=== PATIENT | male | born 1990 | race Caucasian/White ===

== ENCOUNTER 2017-08-11 20:12 | Emergency (ER) | payer BC, OTHER ==
[2017-08-11] MEDS ORDERED: predniSONE 20 MG Tab PO ONE (21:20)
[2017-08-11] MEDS ORDERED: Orphenadrine 100 MG Tab.ER PO STA (21:20)
--- NOTE | 2017-08-11 21:27 | EDM.PDOC ---
ED HPI GENERAL MEDICAL PROBLEM - General Chief Complaint: Back Pain or Injury Stated Complaint: BACK PAIN Time Seen by Provider: 08/11/17 20:50 Source of Information: Reports: Patient, RN Notes Reviewed History Limitations: Reports: No Limitations - History of Present Illness INITIAL COMMENTS - FREE TEXT/NARRATIVE: The patient states that he bent over to pepper picker his keys around 08:00 this morning, and felt sharp pain in his lower right back area. It radiates to his right buttock, but not below. The pain is constant, but worse with certain movements - not necessarily flexing. He states that he saw a chiropractor around 14:00 this afternoon. He is unsure what the chiropractor's diagnosis was, but he received an adjustment which provided temporary improvement, but the pain has since come back. The chiropractor recommended ice, which the patient has been applying but the patient feels that his symptoms are getting worse. He is taking a total of 3 Aleve today which have not helped. No prior similar symptoms. The patient does not have a PCP. Lower Back Pain Score (Numeric/FACES): 8 - Related Data Allergies Allergy/AdvReac Type Severity Reaction Status Date / Time No Known Allergies Allergy Verified 08/11/17 20:25 Home Meds: Home Meds Orphenadrine [Norflex] 1 tab PO Q12H #20 tab.er 08/11/17 [Rx] Prednisone [IJD: predniSONE] 20 mg PO WITHBREAKFAST #5 tab 08/11/17 [Rx] Past Medical History Respiratory History: Reports: Pneumothorax (left, spontaneous) - Past Surgical History HEENT Surgical History: Reports: Myringotomy w Tube(s) (bilateral), Tonsillectomy Respiratory Surgical History: Reports: Pneumonectomy (left) Social & Family History - Family History Family Medical History: Noncontributory - Tobacco Use Smoking Status *Q: Never Smoker - Caffeine Use Caffeine Use: Reports: Coffee - Alcohol Use Alcohol Use History: Yes Alcohol Use Frequency: Socially - Recreational Drug Use Recreational Drug Use: No - Living Situation & Occupation Living situation: Reports: , with Spouse Occupation: Employed ([employer]) ED ROS GENERAL - Review of Systems Review Of Systems: See Below Constitutional: Reports: No Symptoms HEENT: Reports: No Symptoms Respiratory: Reports: No Symptoms Cardiovascular: Reports: No Symptoms Endocrine: Reports: No Symptoms GI/Abdominal: Reports: No Symptoms : Reports: No Symptoms Musculoskeletal: Reports: No Symptoms Skin: Reports: Other (Left leg cellulitis 2 to 3 weeks ago) Neurological: Reports: No Symptoms Psychiatric: Reports: No Symptoms Hematologic/Lymphatic: Reports: No Symptoms Immunologic: Reports: No Symptoms ED EXAM,LOWER BACK PAIN/INJURY - Physical Exam Exam: See Below Exam Limited By: No Limitations General Appearance: Alert, WD/WN, Mild Distress (Appears uncomfortable. Prefers to stand.), Other (Marfanoid appearance, although his palate is not significantly high-arched) Eye Exam: Bilateral Eye: Normal Inspection Ears: Normal External Exam, Hearing Grossly Normal Nose: Normal Inspection, No Blood Throat/Mouth: Normal Inspection, Normal Lips, Normal Teeth, Normal Gums, Normal Oropharynx, Normal Voice, No Airway Compromise Head: Atraumatic, Normocephalic Neck: Normal Inspection, Full Range of Motion Respiratory/Chest: No Respiratory Distress, Lungs Clear, Normal Breath Sounds, No Accessory Muscle Use Cardiovascular: Normal Peripheral Pulses, Regular Rate, Rhythm, No Gallop, No JVD, No Murmur, No Rub GI/Abdominal: Normal Bowel Sounds, Soft, Non-Tender, No Organomegaly, No Distention, No Abnormal Bruit, No Mass (Male) Exam: Deferred Rectal (Males) Exam: Deferred Back Exam: Normal Inspection, Other (No visible abnormality to the lower right back, such as swelling, erythema, ecchymosis, or abrasion. There is tenderness to palpation just superior to the right SI joint, but nowhere else. The patient is able to flex the spine to approximately 30 before significant pain. He is able to extend the spine to approximate 20. He is able to tilt the spine bilaterally to about 30. He is able to twist spine bilaterally to about 45, without any difficulty. Bilateral unilateral knee bend is normal. Straight leg raise induces right lower back pain around 45 bilaterally.) Extremities: Normal Inspection, Normal Range of Motion, Non-Tender, No Pedal Edema, Normal Capillary Refill Neurological: Alert, Normal Dorsiflexion, Normal Plantar Flexion, No Motor/ Sensory Deficits, Oriented x 3 Psychiatric: Normal Affect Skin Exam: Warm, Dry, Intact, Normal Color, No Rash Course - Vital Signs Last Recorded V/S: Last Vital Signs Temp 36.4 C 08/11/17 20:22 Pulse 74 08/11/17 20:22 Resp 18 08/11/17 20:22 BP 146/74 H 08/11/17 20:22 Pulse Ox 100 08/11/17 20:22 - Orders/Labs/Meds Meds: Medications Discontinued Medications Generic Name Dose Route Start Last Admin Trade Name [place] PRN Reason Stop Dose Admin Orphenadrine Citrate 100 mg 08/11/17 21:20 08/11/17 21:33 Norflex PO 08/11/17 21:21 100 mg ONETIME STA Administration Prednisone 60 mg 08/11/17 21:20 08/11/17 21:33 Prednisone PO 08/11/17 21:21 60 mg ONETIME ONE Administration - Re-Assessments/Exams Free Text/Narrative Re-Assessment/Exam: 08/11/17 21:21 The patient's examination is most consistent with a lower back strain, not a herniated intervertebral disc. After discussing options, we will proceed with oral prednisone and oral Norflex. If this should fail to improve his symptoms, the patient will have a referral to the clinic where he could follow-up for further evaluation. He may benefit from a MRI and/or local injection. Departure - Departure Time of Disposition: 21:22 Disposition: Home, Self-Care 01 Condition: Good Clinical Impression: Strain of muscle, fascia and tendon of lower back, initial encounter - Discharge Information Prescriptions: Orphenadrine [Norflex] 1 tab PO Q12H #20 tab.er Prednisone [IJD: predniSONE] 20 mg PO WITHBREAKFAST #5 tab Referrals: PCP,None [Primary Care Provider] - Virginie Moe [Physician] - Forms: ED Department Discharge Additional Instructions: You were seen in the emergency room for lower right back pain. Based on your examination, you have MOST LIKELY strained your lower right back. You have been started on the steroid prednisone. Take one tablet each morning, with breakfast, starting tomorrow, 08/12/2017, as prescribed. If you take prednisone, you CANNOT take other NSAIDs, such as aspirin, Aleve, or ibuprofen. You have been started on the muscle relaxant Norflex. Take one tablet every 12 hours, as prescribed. It is important that you stay active, however, avoid flexing to pepper picker over 10 pounds, and twisting. Swimming is best. Walking is also very good. If your symptoms fail to improve, please follow-up with Dr. Moe in the clinic for further evaluation. If any other problems, please do not hesitate to return to the ER.
== END 2017-08-11 21:36 | disposition home or self-care (01) ==
LOC: JD.ED 20:12
DX: S39.012A Strain of muscle, fascia and tendon of lower back, initial encounter (principal); Z98.890 Other specified postprocedural states; X58.XXXA Exposure to other specified factors, initial encounter
CPT/HCPCS: 99283; A9270